=== PATIENT | male | born 1935 | race Caucasian/White ===

== ENCOUNTER 2019-04-17 13:58 | Emergency (ER) | payer OTHER ==
--- NOTE | 2019-04-17 14:18 | ER ---
Nurse's Notes [facility] Name: Jet Lopez Jr Age: 83 yrs Sex: Male : 1935 Arrival Date: 04/17/2019 Time: 13:59 Bed 27 Private MD: Rafaela Atkins C Diagnosis: Acute suppurative otitis media with spontaneous rupture of ear drum, right ear Presentation: 04/17 14:00 Presenting complaint: Patient states: runny nose, productive cough, congestion x 2 sv weeks and yesterday started having right ear pain. Transition of care: patient was not received from another setting of care. Onset of symptoms was March 2019. Risk Assessment: Do you want to hurt yourself or someone else? Patient reports no desire to harm self or others. Initial Sepsis Screen: Does the patient meet any 2 criteria? No. Patient's initial sepsis screen is negative. Does the patient have a suspected source of infection? Yes: Productive cough/pneumonia. Care prior to arrival: None. 14:00 Method Of Arrival: Wheelchair sv 14:00 Acuity: ROCKY 3 sv Historical: - Allergies: 14:09 No Known Allergies; sv - PMHx: 14:09 None; sv - PSHx: 14:09 cataract sx BL; retina repair to right eye; Skin cancer removed; back; sv - Immunization history:: Flu vaccine is not up to date. - Social history:: Smoking status: Patient/guardian denies using tobacco, Patient/guardian denies using alcohol, street drugs, The patient lives with family. - Ebola Screening: : No symptoms or risks identified at this time. - Family history:: not pertinent. Screenin:30 Abuse screen: Denies threats or abuse. Denies injuries from another. Nutritional rv screening: No deficits noted. Tuberculosis screening: No symptoms or risk factors identified. Fall Risk None identified. Assessment: 14:29 General: Appears in no apparent distress. comfortable, Behavior is calm, cooperative. rv Pain: Complains of pain in right ear. Neuro: Level of Consciousness is awake, alert, obeys commands, Oriented to person, place, time, situation. Cardiovascular: Patient's skin is warm and dry. Respiratory: Airway is patent. EENT: Ear canal w/ drainage noted from right ear. Derm: Skin is intact. Vital Signs: 14:09 BP 175 / 79; Pulse 75; Resp 18; Temp 98.1; Pulse Ox 100% ; Weight 79.38 kg; Height 5 sv ft. 10 in. (177.80 cm); 14:09 Body Mass Index 25.11 (79.38 kg, 177.80 cm) sv ED Course: 13:59 Patient arrived in ED. as 14:00 Rafaela Atkins MD is Private Physician. as 14:00 Arm band placed on Patient placed in an exam room, on a stretcher. sv 14:01 Luis Nelson RN is Primary Nurse. rv 14:03 Nicole Scott MD is Attending Physician. ma2 14:09 Triage completed. sv 14:16 Carley Morrell MD is Referral Physician. ma2 14:31 Patient has correct armband on for positive identification. Call light in reach. Side rv rails up X 1. 14:31 No provider procedures requiring assistance completed. Patient did not have IV access rv during this emergency room visit. Administered Medications: 14:28 Drug: [place] 5 mg-325 mg 1 tabs {Note: rass 0.} Route: PO; rv 14:29 Follow up: Response: Medication administered at discharge. rv 14:28 Drug: Augmentin 875 mg Route: PO; rv 14:29 Follow up: Response: Medication administered at discharge. rv Outcome: 14:17 Discharge ordered by . ma2 14:31 Discharged to home via wheelchair, with family. rv 14:31 Condition: good 14:31 Discharge instructions given to patient, family, Instructed on discharge instructions, follow up and referral plans. medication usage, Demonstrated understanding of instructions, follow-up care, medications, Prescriptions given X 3. 14:32 Patient left the ED. rv Signatures: Carley Garza, RN RN Aspen Prieto as Nicole Scott MD MD ma Luis Nelson RN RN rv
--- NOTE | 2019-04-17 14:18 | EDPHYS ---
Physician Documentation [facility] Name: Jet Lopez Jr Age: 83 yrs Sex: Male : 1935 Arrival Date: 04/17/2019 Time: 13:59 Bed 27 Private MD: Rafaela Atkins C ED Physician Nicole Scott HPI: 04/17 14:15 This 83 yrs old Male presents to ER via Wheelchair with complaints of Ear ma2 Pain. 14:15 The patient presents with drainage, pain. The complaints affect the right ear. ma2 Associated signs and symptoms: Pertinent negatives: lightheadedness, sinus trouble, sore throat, vertigo. Severity of symptoms: At their worst the symptoms were moderate in the emergency department the symptoms are unchanged. The patient has not experienced similar symptoms in the past. Historical: - Allergies: 14:09 No Known Allergies; sv - PMHx: 14:09 None; sv - PSHx: 14:09 cataract sx BL; retina repair to right eye; Skin cancer removed; back; sv - Immunization history:: Flu vaccine is not up to date. - Social history:: Smoking status: Patient/guardian denies using tobacco, Patient/guardian denies using alcohol, street drugs, The patient lives with family. - Ebola Screening: : No symptoms or risks identified at this time. - Family history:: not pertinent. ROS: 14:15 Constitutional: Negative for fever, chills, and weight loss. ma2 14:15 All other systems are negative. Exam: 14:15 Constitutional: This is a well developed, well nourished patient who is awake, alert, ma2 and in no acute distress. Head/Face: Normocephalic, atraumatic. Eyes: Pupils equal round and reactive to light, extra-ocular motions intact. Lids and lashes normal. Conjunctiva and sclera are non-icteric and not injected. Cornea within normal limits. Periorbital areas with no swelling, redness, or edema. ENT: Nares patent. No nasal discharge, no septal abnormalities noted. Tympanic membranes are normal and external auditory canals are clear. Oropharynx with no redness, swelling, or masses, exudates, or evidence of obstruction, uvula midline. Mucous membranes moist. Neck: Trachea midline, no thyromegaly or masses palpated, and no cervical lymphadenopathy. Supple, full range of motion without nuchal rigidity, or vertebral point tenderness. No Meningismus. Chest/axilla: Normal chest wall appearance and motion. Nontender with no deformity. No lesions are appreciated. Cardiovascular: Regular rate and rhythm with a normal S1 and S2. No gallops, murmurs, or rubs. Normal PMI, no JVD. No pulse deficits. Respiratory: Lungs have equal breath sounds bilaterally, clear to auscultation and percussion. No rales, rhonchi or wheezes noted. No increased work of breathing, no retractions or nasal flaring. 14:15 ENT: TM's: rupture, on the right, with purulent discharge. Vital Signs: 14:09 BP 175 / 79; Pulse 75; Resp 18; Temp 98.1; Pulse Ox 100% ; Weight 79.38 kg; Height 5 sv ft. 10 in. (177.80 cm); 14:09 Body Mass Index 25.11 (79.38 kg, 177.80 cm) sv MDM: 14:03 Patient medically screened. ma2 14:15 Differential diagnosis: otitis media, otitis externa, ruptured TM, acute otalgia. Data ma2 reviewed: vital signs, nurses notes. Counseling: I had a detailed discussion with the patient and/or guardian regarding: the historical points, exam findings, and any diagnostic results supporting the discharge/admit diagnosis, the presence of at least one elevated blood pressure reading (>120/80) during this emergency department visit, the need for outpatient follow up. Response to treatment: the patient's symptoms have markedly improved after treatment, declined im pain rx. Administered Medications: 14:28 Drug: [place] 5 mg-325 mg 1 tabs {Note: rass 0.} Route: PO; rv 14:29 Follow up: Response: Medication administered at discharge. rv 14:28 Drug: Augmentin 875 mg Route: PO; rv 14:29 Follow up: Response: Medication administered at discharge. rv Disposition: 04/17/19 14:17 Discharged to Home. Impression: Acute suppurative otitis media with spontaneous rupture of ear drum, right ear. - Condition is Stable. - Discharge Instructions: Otitis Media, Adult, [id number]. - Prescriptions for Amoxicillin 875 mg Oral Tablet - take 1 tablet by ORAL route every 12 hours for 10 days; 20 tablet. Tylenol- Codeine #3 300-30 mg Oral Tablet - take 2 tablet by ORAL route every 6 hours As needed; 30 tablet. Ciprodex 0.3- 0.1 % Otic Drops, Suspension - instill 4 drop by OTIC route every 12 hours for 7 days , for ears ONLY; 1 Container. - Medication Reconciliation Form, Thank You Letter, Antibiotic Education, Prescription Opioid Use form. - Follow up: Carley Morrell MD; When: Tomorrow; Reason: Continuance of care. - Notes: Keep water away from right ear, take ear drops and antibiotic by mouth Signatures: Carley Garza, RN RN sv Nicole Scott MD MD ma2 Luis Nelson RN RN rv Corrections: (The following items were deleted from the chart) 14:32 14:17 04/17/2019 14:17 Discharged to Home. Impression: Acute suppurative otitis media rv with spontaneous rupture of ear drum, right ear. Condition is Stable. Forms are Medication Reconciliation Form, Thank You Letter, Antibiotic Education, Prescription Opioid Use. Follow up: Carley Morrell; When: Tomorrow; Reason: Continuance of care. ma2
[2019-04-17] MEDS ORDERED: HYDROCODONE/APAP 5/325 MG TAB ONE (14:27)
[2019-04-17] MEDS ORDERED: AMOX/K CLAV 875 MG TAB ONE (14:27)
[2019-04-17 14:35] VITALS: BP 175/79; TEMP 98.1; O2SAT 100
== END 2019-04-17 14:32 | disposition home or self-care (01) ==
LOC: ER 13:58
DX: H66.011 Acute suppurative otitis media with spontaneous rupture of ear drum, right ear (principal)
CPT/HCPCS: 99283

== ENCOUNTER 2022-03-06 13:34 | Emergency (ER) | payer OTHER ==
--- NOTE | 2022-03-06 15:04 | RAD REPORT ---
EXAM DESCRIPTION: RAD - Chest Single View - 03/06/2022 2:58 pm CLINICAL HISTORY: MALAISE COMPARISON: Chest Pa And Lat (2 Views) dated 08/11/2018; CHEST PA AND LAT 2 VIEW dated 01/26/2013; KAYLA ST PA AND LAT 2 VIEW dated 03/24/2012; CHEST PA AND LAT 2 VIEW dated 06/03/2011 FINDINGS: Lines: None. Lungs: No evidence of edema or pneumonia. Pleural: No significant pleural effusions or pneumothorax. Cardiac: The heart size is within normal limits. Mediastinum: Within normal limits. Bones: No acute fractures. Scoliosis. Other: None IMPRESSION: No acute cardiopulmonary disease.
--- NOTE | 2022-03-06 15:06 | RAD REPORT ---
EXAM DESCRIPTION: CT - Head Brain Wo Cont - 03/06/2022 2:52 pm CLINICAL HISTORY: Dizziness COMPARISON: HEAD BRAIN W O CONTRAST dated 05/30/2010 TECHNIQUE: All CT scans are performed using dose optimization technique as appropriate and may inclu de automated exposure control or mA/KV adjustment according to patient size. FINDINGS: No intracranial hemorrhage, hydrocephalus or extra-axial fluid collection.No areas of brai n edema or evidence of midline shift. Cerebral atrophy with mild chronic small vessel ischemic change s. Paranasal sinus thickening. The calvarium is intact. IMPRESSION: No acute intracranial abnormality.
[2022-03-06 15:21] LABS: Urine Blood Negative (Negative); Urine Glucose Negative (Negative); Urine Protein Negative (Negative); Urine Specific Gravity 1.015 (1.005-1.030); Urine pH 7.5 (5.0-7.0)
[2022-03-06 15:21] LABS: Hematocrit 45.5 % (39.6-49.0); Lymphocytes % 19.1 % (15.3-44.8); MCV 93.8 fL (80-100); RBC Red Blood Cell Count 4.85 M/uL (4.33-5.43)
[2022-03-06 16:08] LABS: Potassium 4.2 mmol/L (3.5-5.1); Troponin High Sensitivity 6.3 pg/mL (<58.9)
--- NOTE | 2022-03-06 16:12 | ER ---
Nurse's Notes [facility] Name: Jet Lopez Jr Age: 86 yrs Sex: Male : 1935 Arrival Date: 03/06/2022 Time: 13:35 Bed 18 Private MD: Rafaela Atkins C Diagnosis: Benign paroxysmal vertigo, unspecified ear Presentation: 03/06 13:46 Chief complaint: Dizziness since this morning. VAN Negative. Last known normal was 10pm ss last night. Coronavirus screen: At this time, the client does not indicate any symptoms associated with coronavirus-19. Ebola Screen: No symptoms or risks identified at this time. Risk Assessment: Do you want to hurt yourself or someone else? Patient reports no desire to harm self or others. Onset of symptoms was March 06, 2022. 13:46 Method Of Arrival: Ambulatory ss 13:46 Acuity: ROCKY 3 ss 16:53 Initial Sepsis Screen: Does the patient meet any 2 criteria? No. Patient's initial db sepsis screen is negative. Does the patient have a suspected source of infection? No. Patient's initial sepsis screen is negative. Historical: - Allergies: 13:48 No Known Allergies; ss - Immunization history:: Client reports having NOT received the Covid vaccine. - Social history:: Smoking status: unknown. Screenin:34 Abuse screen: Denies threats or abuse. Denies injuries from another. Nutritional db screening: No deficits noted. Tuberculosis screening: No symptoms or risk factors identified. Fall Risk None identified. No fall in past 12 months (0 pts). No secondary diagnosis (0 pts). IV access (20 points). Ambulatory Aid- Crutches/Cane/Walker (15 pts). Gait- Weak (10 pts.). Mental Status- Oriented to own ability (0 pts). Total Sagast[place] Fall Scale indicates High Risk Score (45 or more points). Family Present and informed to notify staff if the need to leave the bedside. Assessment: 14:46 Reassessment: Patient appears in no apparent distress at this time. Patient is alert, db oriented x 3, equal unlabored respirations, skin warm/dry/pink. patient to CT. 16:48 Reassessment: Patient appears in no apparent distress at this time. Patient and/or db family updated on plan of care and expected duration. Pain level reassessed. Patient is alert, oriented x 3, equal unlabored respirations, skin warm/dry/pink. Patient states feeling better. Patient states symptoms have improved. General: Appears in no apparent distress. comfortable, Behavior is calm, cooperative, appropriate for age, quiet. Pain: Denies pain. Neuro: No deficits noted. Level of Consciousness is awake, alert, obeys commands, Oriented to person, place, time, situation, Appropriate for age. Cardiovascular: No deficits noted. Respiratory: No deficits noted. GI: No deficits noted. No signs and/or symptoms were reported involving the gastrointestinal system. : No deficits noted. No signs and/or symptoms were reported regarding the genitourinary system. EENT: No deficits noted. No signs and/or symptoms were reported regarding the EENT system. Derm: No deficits noted. No signs and/or symptoms reported regarding the dermatologic system. Musculoskeletal: No deficits noted. No signs and/or symptoms reported regarding the musculoskeletal system. Vital Signs: 13:46 BP 146 / 72; Pulse 69; Resp 16; Temp 97.9; Pulse Ox 96% on R/A; Weight 81.65 kg; Height ss 5 ft. 10 in. (177.80 cm); Pain 0/10; 16:34 BP 176 / 68; Pulse 76; Resp 18; Pulse Ox 95% on R/A; db 13:46 Body Mass Index 25.83 (81.65 kg, 177.80 cm) ED Course: 13:00 Inserted saline lock: 20 gauge in right antecubital area, using aseptic technique. db Blood collected. 13:35 Patient arrived in ED. as 13:35 Rafaela Atkins MD is Private Physician. as 13:48 Triage completed. ss 13:48 Arm band placed on. ss 14:35 [facility] jl9 14:35 Jorge Orellana MD is Attending Physician. jl9 14:45 Deepali New RN is Primary Nurse. db 14:52 Head Brain Wo Cont CT In Process Unspecified. EDMS 14:57 X-ray completed. Patient tolerated procedure well. Patient moved back from radiology. mh1 14:59 XRAY Chest (1 view) In Process Unspecified. EDMS 16:34 Patient has correct armband on for positive identification. Bed in low position. Call db light in reach. Side rails up X 1. 16:34 No provider procedures requiring assistance completed. db 16:35 IV discontinued, intact, bleeding controlled, No redness/swelling at site. db Administered Medications: No medications were administered Medication: 16:34 VIS not applicable for this client. db Outcome: 16:12 Discharge ordered by MD. vera 16:35 Discharged to home ambulatory, with family. db 16:35 Condition: stable 16:35 Discharge instructions given to patient, family, Instructed on discharge instructions, follow up and referral plans. Demonstrated understanding of instructions, Prescriptions given X 1. 16:53 Patient left the ED. Signatures: Dispatcher [employer] EDMS Duyen Cortez 1 Aspen Olguin Shelby, FAN RN Ellis Joseph9 Deepali New, FAN RN db
--- NOTE | 2022-03-06 16:13 | EDPHYS ---
Physician Documentation [facility] Name: Jet Lopez Jr Age: 86 yrs Sex: Male : 1935 Arrival Date: 03/06/2022 Time: 13:35 Bed 18 Private MD: Rafaela Atkins C ED Physician Jorge Orellana HPI: 03/06 16:09 This 86 yrs old Male presents to ER via Ambulatory with complaints of jl9 Dizziness earlier today. Patient reports having an episode of feeling lightheaded earlier today but has since resolved. . 16:09 The patient presents with lightheadedness. Onset: The symptoms/episode began/occurred jl9 this morning. Modifying factors: The symptoms are alleviated by nothing, the symptoms are aggravated by nothing. Associated signs and symptoms: The patient has no apparent associated signs or symptoms. Historical: - Allergies: 13:48 No Known Allergies; ss - Immunization history:: Client reports having NOT received the Covid vaccine. - Social history:: Smoking status: unknown. ROS: 16:10 Constitutional: Negative for fever, chills, and weight loss, Eyes: Negative for injury, jl9 pain, redness, and discharge, ENT: Negative for injury, pain, and discharge, Neck: Negative for injury, pain, and swelling, Cardiovascular: Negative for chest pain, palpitations, and edema, Respiratory: Negative for shortness of breath, cough, wheezing, and pleuritic chest pain, Abdomen/GI: Negative for abdominal pain, nausea, vomiting, diarrhea, and constipation, Back: Negative for injury and pain, : Negative for injury, bleeding, discharge, and swelling, MS/Extremity: Negative for injury and deformity, Skin: Negative for injury, rash, and discoloration. 16:10 Psych: Negative for depression, anxiety, suicide ideation, homicidal ideation, and hallucinations, Allergy/Immunology: Negative for hives, rash, and allergies, Endocrine: Negative for neck swelling, polydipsia, polyuria, polyphagia, and marked weight changes, Hematologic/Lymphatic: Negative for swollen nodes, abnormal bleeding, and unusual bruising. 16:10 Neuro: Positive for dizziness. Exam: 16:11 Constitutional: This is a well developed, well nourished patient who is awake, alert, jl9 and in no acute distress. Head/Face: Normocephalic, atraumatic. Eyes: Pupils equal round and reactive to light, extra-ocular motions intact. Lids and lashes normal. Conjunctiva and sclera are non-icteric and not injected. Cornea within normal limits. Periorbital areas with no swelling, redness, or edema. ENT: Mucous membranes moist. Neck: Trachea midline, no thyromegaly or masses palpated, and no cervical lymphadenopathy. Supple, full range of motion without nuchal rigidity, or vertebral point tenderness. No Meningismus. Chest/axilla: Normal chest wall appearance and motion. Nontender with no deformity. No lesions are appreciated. Cardiovascular: Regular rate and rhythm with a normal S1 and S2. No gallops, murmurs, or rubs. Normal PMI, no JVD. No pulse deficits. Respiratory: Lungs have equal breath sounds bilaterally, clear to auscultation and percussion. No rales, rhonchi or wheezes noted. No increased work of breathing, no retractions or nasal flaring. Abdomen/GI: Soft, non-tender, with normal bowel sounds. No distension or tympany. No guarding or rebound. No evidence of tenderness throughout. Back: No spinal tenderness. No costovertebral tenderness. Full range of motion. Skin: Warm, dry with normal turgor. Normal color with no rashes, no lesions, and no evidence of cellulitis. MS/ Extremity: Pulses equal, no cyanosis. Neurovascular intact. Full, normal range of motion. Neuro: Awake and alert, GCS 15, oriented to person, place, time, and situation. Cranial nerves II-XII grossly intact. Motor strength 5/5 in all extremities. Sensory grossly intact. Cerebellar exam normal. Normal gait. Psych: Awake, alert, with orientation to person, place and time. Behavior, mood, and affect are within normal limits. Vital Signs: 13:46 BP 146 / 72; Pulse 69; Resp 16; Temp 97.9; Pulse Ox 96% on R/A; Weight 81.65 kg; Height ss 5 ft. 10 in. (177.80 cm); Pain 0/10; 16:34 BP 176 / 68; Pulse 76; Resp 18; Pulse Ox 95% on R/A; db 13:46 Body Mass Index 25.83 (81.65 kg, 177.80 cm) MDM: 14:35 Patient medically screened. [facility] 16:11 Differential diagnosis: CVA, generalized weakness, near-syncope, vertigo. Data jl9 reviewed: vital signs, nurses notes. 16:11 Counseling: I had a detailed discussion with the patient and/or guardian regarding: the 9 historical points, exam findings, and any diagnostic results supporting the discharge/admit diagnosis, lab results, radiology results, the need for outpatient follow up, to return to the emergency department if symptoms worsen or persist or if there are any questions or concerns that arise at home. 03/06 14:36 Order name: Basic Metabolic Panel; Complete Time: 16:09 [facility] 03/06 14:36 Order name: CBC with Diff; Complete Time: 16: [facility] 03/06 14:36 Order name: Troponin HS; Complete Time: 16:09 [facility] 03/06 14:36 Order name: XRAY Chest (1 view); Complete Time: 15:07 [facility] 03/06 14:36 Order name: Head Brain Wo Cont CT; Complete Time: 15:07 [facility] 03/06 15:21 Order name: Urine Dipstick-Ancillary; Complete Time: 15:42 [facility] 03/06 14:36 Order name: EKG; Complete Time: 14:37 [facility] 03/06 14:36 Order name: EKG - Nurse/Tech; Complete Time: 16:54 [facility] 03/06 14:36 Order name: IV Saline Lock; Complete Time: 15:42 [facility] 03/06 14:36 Order name: Labs collected and sent; Complete Time: 15:42 [facility] 03/06 14:36 Order name: Urine Dipstick-Ancillary (obtain specimen); Complete Time: 15:42 [facility] Administered Medications: No medications were administered Disposition Summary: 03/06/22 16:12 Discharge Ordered Location: Home jl9 Condition: Stable jl9 Diagnosis - Benign paroxysmal vertigo, unspecified ear jl9 Followup: jl9 - With: Private Physician - When: 1 - 2 days - Reason: Recheck today's complaints, Continuance of care, Re-evaluation by your physician Discharge Instructions: - Discharge Summary Sheet jl9 - Benign Positional Vertigo jl9 - Dizziness, [id number] jl9 Forms: - Medication Reconciliation Form jl9 - Thank You Letter jl9 - Antibiotic Education jl9 - Prescription Opioid Use jl9 Prescriptions: - Meclizine 25 mg Oral Tablet - take 1 tablet by ORAL route every 8 hours As needed; 30 tablet; Refills: 0, jl9 Product Selection Permitted Signatures: Dispatcher [employer] Malinda Us, RN RN Ellis Joseph Danielle RN RN db
[2022-03-06 16:59] VITALS: TEMP 97.9
[2022-03-06 17:00] VITALS: BP 176/68; O2SAT 95
--- NOTE | 2022-03-09 15:14 | EKG ---
Test Date: 2022-03-06 Test Time: 16:20:50 Pickle Sorter: BRENDA MEASUREMENT RESULTS: Intervals: Rate: 68 SD: 184 QRSD: 62 QT: 384 QTc: 408 Foster: P: 61 SD: 184 QRS: -12 T: 41 INTERPRETIVE STATEMENTS: Normal sinus rhythm Normal ECG Compared to ECG 05/30/2010 12:34:07 No significant changes Electronically Signed On 03-09-22 15:10:29 MANAGER ASSESSMENT by Drew Quiroz
== END 2022-03-06 16:53 | disposition home or self-care (01) ==
LOC: ER 13:34
DX: H81.10 Benign paroxysmal vertigo, unspecified ear (principal)
CPT/HCPCS: 36415; 70450; 71045; 80048; 81003; 84484; 85025; 93005; 99284